=== PATIENT | male | born 1980 | race Caucasian/White ===

== ENCOUNTER 2018-08-04 22:10 | Emergency (ER) | payer SELFPAY ==
[~2018-08-04] VITALS: Ht 177.8 cm; Wt 99.8 kg
[2018-08-04] MEDS ORDERED: IV NORMAL SALINE 1000 ML BAG IV ONE (22:30)
[2018-08-04] MEDS ORDERED: KETOROLAC TROMETHAMINE 15 MG INJ IV ONE (22:30)
[2018-08-04] MEDS ORDERED: ONDANSETRON 4 MG/2 ML VIAL IV ONE (22:30)
[2018-08-04] MEDS ORDERED: MORPHINE SULFATE 2 MG/1 ML DISP.SYRIN IV ONE (22:30)
[2018-08-04] MEDS ORDERED: KETOROLAC TROMETHAMINE 15 MG INJ ONE ×2 (22:37→22:43)
[2018-08-04] MEDS ORDERED: ONDANSETRON 4 MG/2 ML VIAL ONE (22:38)
[2018-08-04] MEDS ORDERED: MORPHINE SULFATE 4 MG/1 ML DISP.SYRIN ONE (22:38)
[2018-08-04 22:44] LABS: BASOPHILS # (AUTO) 0.1 K/uL (0.0-8.0); BASOPHILS % (AUTO) 0.7 % (0.0-2.0); EOSINOPHILS % (AUTO) 0.2 % (0.0-7.0); HEMOGLOBIN 18.2 g/dL (12.5-16.3); LYMPHOCYTES % (AUTO) 12.1 % (20.5-51.5); MEAN CORPUSCULAR HEMOGLOBIN 32.9 uug (23.8-33.4); MEAN CORPUSCULAR HGB CONC 35 g/dL (32.5-36.3); MEAN CORPUSCULAR VOLUME 94.2 fL (73.0-96.2); MONOCYTES % (AUTO) 6.3 % (0.0-11.0); NEUTROPHILS % (AUTO) 80.7 % (38.5-71.5); PLATELET COUNT (AUTO) 176 K/uL (152-348); RED BLOOD CELL COUNT(AUTO) 5.52 MIL/uL (4.06-5.63); WHITE BLOOD COUNT (AUTO) 16.2 K/uL (3.6-10.2)
--- NOTE | 2018-08-04 22:44 | NUR ---
Pt went down to radiology dept for CT scan.
[2018-08-04 22:50] LABS: CREATININE 1.3 mg/dL (0.6-1.3); POTASSIUM 3.4 mmol/L (3.5-5.1)
[2018-08-04 22:55] LABS: BILIRUBIN,DIRECT 0.1 mg/dL (0.0-0.2); BILIRUBIN,TOTAL 0.5 mg/dL (0.2-1.0)
[2018-08-04] MEDS ORDERED: KETOROLAC TROMETHAMINE 15 MG INJ IVP ONE (23:00)
--- NOTE | 2018-08-04 23:05 | NUR ---
Pt back from radiology dept. VSS. Pt states he feels a lot better after given pain medication.
--- NOTE | 2018-08-04 23:11 | NUR ---
Collected urine sample, sent to lab. Pending results. Will ctm.
[2018-08-04 23:15] LABS: *BILIRUBIN,URIN NEGATIVE (NEGATIVE); *BLOOD, URINE 3+ (NEGATIVE); *CLARITY,URINE CLEAR (CLEAR); *COLOR,URINE YELLOW (YELLOW); *KETONES,URINE 1+ (NEGATIVE); *PROTEIN,URINE 1+ (NEGATIVE); *UROBILINOGEN,URINE 0.2 E.U./dl (NORMAL); LEUKOCYTE ESTERASE ,URINE NEGATIVE (NEGATIVE); NITRITE, URINE NEGATIVE (NEGATIVE); PH,URINE 8.5 (5.0-8.0); UGLUCOSE NEGATIVE (NEGATIVE)
[2018-08-04 23:18] LABS: BACTERIA,URINE FEW /HPF (NONE SEEN); MUCUS,URINE MODERATE /LPF (0-FEW); RBC,URINE 80-100 /HPF (0-3); SQUAMOUS EPITHELIAL CELL,UR FEW /HPF (NONE SEEN)
[2018-08-04] MEDS ORDERED: HYDROMORPHONE 1 MG/1 ML DISP.SYRIN ONE (23:26)
[2018-08-04] MEDS ORDERED: IV NORMAL SALINE 500 ML BAG IV ONE (23:30)
[2018-08-04] MEDS ORDERED: HYDROMORPHONE 1 MG/1 ML DISP.SYRIN IV ONE (23:30)
[2018-08-04] MEDS ORDERED: TAMSULOSIN HCL 0.4 MG CAP.SR.24H PO ONE (23:45)
[2018-08-04] MEDS ORDERED: TAMSULOSIN HCL 0.4 MG CAP.SR.24H ONE (23:49)
--- NOTE | 2018-08-04 23:56 | NUR ---
Called [facility] imaging for report to be read.
[2018-08-05] MEDS ORDERED: AZITHROMYCIN 250 MG TABLET PO ONE (00:30)
[2018-08-05] MEDS ORDERED: AMLODIPINE 5 MG TABLET ONE (00:30)
[2018-08-05] MEDS ORDERED: AZITHROMYCIN 250 MG TABLET ONE (00:30)
[2018-08-05] MEDS ORDERED: AMLODIPINE 5 MG TABLET PO ONE (00:30)
--- NOTE | 2018-08-05 00:54 | NUR ---
Patient discharged to home in stable conditon. Written and verbal after care instructions given. Patient verbalizes understanding of instructions. Pt. d/c w/ prescription per MD order, left w/ all belongings,
[2018-08-05 00:56] VITALS: BP 158/96
== END 2018-08-05 00:57 | disposition home or self-care (01) ==
LOC: ER 22:10
DX: N20.9 Urinary calculus, unspecified (principal); I10 Essential (primary) hypertension; R74.8 Abnormal levels of other serum enzymes; R79.89 Other specified abnormal findings of blood chemistry; R91.8 Other nonspecific abnormal finding of lung field
CPT/HCPCS: 36415; 74176; 80048; 80076; 81001; 83690; 85025; 87086; 96361; 96374; 96375; 99284; J1170; J1885 ×2; J2270; J2405; A4663; J7030; Q0144